=== PATIENT | female | born 1965 | race Two or more races ===

== ENCOUNTER → 2016-02-16 | Outpatient (CLI) | payer SELFPAY ==
[2015-12-23 11:00] VITALS: BP 148/93
[~2016-02-16] MED LIST: CYCL10TA2 PO; FERR-26 PO; HYDR50TA6 PO; IBUP100O7 PO; LISI-334 PO; MEDR10TA PO; NAPR500T3 PO
--- NOTE | 2016-02-16 16:19 | KCIC ---
INDICATION: Abnormal [place] bleeding COMPARISON: Report from previous pelvic ultrasound from 12/22/2015. Images are not available for direct review TECHNIQUE: Transabdominal grayscale and spectral doppler ultrasound images are obtained of the pelvis. FINDINGS: Dimensions are in centimeter Uterus: 9.5 x 6.4 x 5.0 Endometrial Stripe: 0.40 Right ovary: 5.2 x 5.2 x 5.1 Left ovary: 2.9 x 1.7 x 1.8 Vascular flow is identified to the bilateral ovaries. There is a 4.5 x 4.1 x 4.1 centimeter right ovarian cyst with a small daughter cyst within IMPRESSION: Normal uterus and bilateral ovaries. 4.5 x 4.1 x 4.1 centimeter right ovarian cyst with a daughter cyst. Reportedly a previous ultrasound from 12/22/2015 demonstrated a 5.3 centimeter left ovarian cyst which is not seen on the current exam. Electronically signed by: Tiffanie Loaiza MD (Feb 16, 2016 16:18:31)
== END | disposition home or self-care (01) ==
LOC: KCIC US 13:20
PROVIDERS: ATTEND Obstetrics & Gynecology
DX: N93.8 Other specified abnormal uterine and vaginal bleeding (principal); N83.202 Unspecified ovarian cyst, left side; N83.201 Unspecified ovarian cyst, right side
CPT/HCPCS: 76856